=== PATIENT | female | born 1995 | race Caucasian/White ===

== ENCOUNTER → 2017-07-24 | Outpatient (CLI) | payer MEDICAID ==
[2017-07-24 15:49] LABS: T4, Free (Free Thyroxine) 1.66 ng/dL (0.78-2.19)
== END | disposition home or self-care (01) ==
LOC: LABWHC1 14:54
PROVIDERS: ATTEND Internal Medicine Endocrinology, Diabetes & Metabolism
DX: E04.2 Nontoxic multinodular goiter (principal)
CPT/HCPCS: 36415; 84439; 84443

== ENCOUNTER → 2017-07-24 | Outpatient (CLI) | payer MEDICAID ==
--- NOTE | 2017-07-25 11:09 | US ---
EXAMINATION TYPE: US thyroid st tissue head/neck DATE OF EXAM: 07/24/2017 COMPARISON: NONE CLINICAL HISTORY: E04.2 NONTOXIC MULTINODULAR GOITER. Patient states having bilateral nodules with le ft bx= benign. On thyroid medications. GLAND SIZE: Right Lobe: 4.2 x 1.7 x 1.0 cm Overall Parenchyma: homogenous Left Lobe: 3.5 x 1.1 x 1.2 cm Overall Parenchyma: homogeneous Isthmus Thickness: 0.3 cm NODULES RIGHT: # of nodules measured on right: 1 1. 0.4 X 0.4 x 0.3 cm hypoechoic solid nodule at the lower pole with well-defined margins. This no dule is taller than wide and shows no intranodular vascularity. Prior size: No prior LEFT: # of nodules measured on left: 1 1. 0.6 X 0.5 x 0.4 cm hypoechoic solid nodule at the lower pole with well-defined margins. This no dule is taller than wide and shows no intranodular vascularity. Prior size: No prior ISTHMUS: # of nodules measured in the isthmus: 1 1. 1.0 X 0.8 x 0.5 cm hypoechoic solid nodule at the lower pole with well-defined margins. This no dule is wider than tall and shows intranodular vascularity. Prior size: No prior Bilateral neck scanned, no evidence of lymphadenopathy. IMPRESSION: Findings suggest multinodular goiter.
== END | disposition home or self-care (01) ==
LOC: RADUSMAIN 15:15 → RADUSWWP 15:15
PROVIDERS: ATTEND Internal Medicine Endocrinology, Diabetes & Metabolism
DX: E04.2 Nontoxic multinodular goiter (principal)
CPT/HCPCS: 76536